=== PATIENT | female | born 2000 | race Hispanic/Latino ===

== ENCOUNTER 2019-11-13 23:23 | Emergency (ER) | payer MEDICAID, OTHER ==
[2019-11-13 23:48] LABS: #Basophils 0.1 thou/uL (0.0-0.2); #Eosinphils 0.1 thou/uL (0.0-0.7); #Lymphocytes 3.6 thou/uL (1.20-3.40); #Monocytes 0.7 thou/uL (0.11-0.59); #Neutrophils 9.8 thou/uL (1.40-6.50); %Basophils 0.6 % (0.0-1.0); %Lymphocytes 25.1 % (21.0-51.0); %Monocytes 5.1 % (0.0-10.0); %Neutrophils 68.2 % (42.0-75.0); Hemoglobin 14.9 g/dL (12.0-16.0); Mean Corpuscular Hemoglobin 33.4 pg (27.0-31.0); Mean Corpuscular Volume 95.4 fL (78.0-98.0); Mean Platelet Volume 7.1 fL (7.4-10.4); Platelet Count 297 thou/uL (130-400); RBC Distribution Width 11.1 % (11.5-14.5); Red Blood Cell (RBC) Count 4.45 mill/uL (4.20-5.40); White Blood Cell (WBC) Count 14.4 thou/uL (4.8-10.8)
[2019-11-14 00:03] LABS: Bilirubin Small (Negative); Blood, Urine Large (Negative); Glucose, Urine (Dipstick) Negative (Negative); Leukocyte Trace (Negative); Nitrite Negative (Negative); Protein, Urine (Dipstick) 100 mg/dL (Neg-Trace); Urobilinogen 0.2 mg/dL (Less than 2)
[2019-11-14 00:07] LABS: Anion Gap 11 mmol/L (10-20); BUN (Urea Nitrogen) 8 mg/dL (7.0-18.7); Calc. Creatinine Clearance 0 mL/min (70-130); Calcium 9.5 mg/dL (7.8-10.44); Carbon Dioxide 26 mmol/L (22-29); Chloride 106 mmol/L (98-107); Estimated GFR-MDRD Greater than 90; Glucose 101 mg/dL (70-105); Potassium 3.4 mmol/L (3.5-5.1); Sodium 140 mmol/L (136-145)
[2019-11-14 00:15] LABS: Bacteria/HPF None Seen HPF (None Seen); RBC/HPF Greater than 50 HPF (0-3); Squamous Epithelial None Seen HPF (0-3)
[2019-11-14 00:16] LABS: Clarity Hazy (Clear); Pregnancy Test - Urine (BHCG) POSITIVE (Negative); Pregu Control Background? CLEAR/WHITE (CLR/WHITE); Pregu Control Bar Appear? YES (CONTROL BAR); Specific Gravity 1.026 (1.002-1.036)
--- NOTE | 2019-11-14 07:07 | ULT ---
PRELIMINARY REPORT/[facility]/EMERGENCY AFTER HOURS PROCEDURE: EXAM: US Obstetrical, Complete <14 weeks CLINICAL HISTORY: PATIENT APPROXIMATELY 8 WEEKS BASED ON PRIOR IMAGING; DO NOT HAVE ACCESS TO PRIOR IMAGES/REP ORT. CURRENT VAGINAL BLEEDING FOR TWO DAYS. HAD PRIOR FULL TERM WITH NO ISSUES;VAGINAL DELI VERY. TECHNIQUE: Transvaginal and transabdominal imaging of the maternal pelvis and a <14 week gestation with image do cumentation. COMPARISON: None provided. FINDINGS: GESTATION: A CRL of 5.1 mm corresponds to 6 weeks 2 days however there is no evidence for heartbeat. UTERUS: Unremarkable. No myometrial mass. Measures 8.7 x 4.8 x 4.2 cm CERVIX: Closed. Unremarkable. OVARIES: Unremarkable. No mass. The RIGHT side measures 3.6 x 2.4 x 3.8 cm and the LEFT side measures 2.6 x 3 .5 x 4.6 cm FREE FLUID: No free fluid. IMPRESSION: Intrauterine gestation of 6 weeks 2 days. There is no evidence for heartbeat at this time and confirmation of the patient's dates is advised. Short-term follow-up ultrasound is advised in order to exclude demise ELECTRONICALLY SIGNED BY: Florin Rey MD Nov 14, 2019 12:47:19 AM CDT This report is intended for review by the ordering physician only, in accordance of law. If you recei ve this report in error, please call [facility] at [phone]. FINAL REPORT EMERGENCY AFTER HOURS PELVIC ULTRASOUND: FINDINGS/IMPRESSION: I agree with the findings and impression given in the preliminary report per [facility] physici an. There is a single intrauterine with estimated age of 6 weeks and 2 days. No heart rat e was able to be detected at this time. A follow-up exam is recommended to ensure viability.
== END 2019-11-14 00:52 | disposition home or self-care (01) ==
LOC: ERS 23:23
DX: O20.0 Threatened abortion (principal); Z3A.01 Less than 8 weeks gestation of pregnancy
CPT/HCPCS: 36415; 76856; 80048; 81003; 81015; 81025; 84702; 85025; 86900; 86901; 99284

== ENCOUNTER 2019-11-14 19:58 | Emergency (ER) | payer OTHER ==
[2019-11-14 21:28] LABS: #Eosinphils 0.1 thou/uL (0.0-0.7); #Lymphocytes 2.4 thou/uL (1.20-3.40); #Monocytes 0.7 thou/uL (0.11-0.59); #Neutrophils 8.4 thou/uL (1.40-6.50); %Basophils 0.3 % (0.0-1.0); %Eosinophils 0.9 % (0.0-10.0); %Lymphocytes 20.6 % (21.0-51.0); %Monocytes 5.9 % (0.0-10.0); %Neutrophils 72.3 % (42.0-75.0); Hemoglobin 14.9 g/dL (12.0-16.0); Mean Corpuscular HGB CONC 34.7 g/dL (32.0-36.0); Mean Corpuscular Hemoglobin 33.1 pg (27.0-31.0); Mean Corpuscular Volume 95.5 fL (78.0-98.0); Mean Platelet Volume 7.3 fL (7.4-10.4); Platelet Count 299 thou/uL (130-400); RBC Distribution Width 11.1 % (11.5-14.5); White Blood Cell (WBC) Count 11.6 thou/uL (4.8-10.8)
[2019-11-14 21:33] LABS: Bacteria/HPF None Seen HPF (None Seen); Bilirubin Negative (Negative); Blood, Urine 3+ (Negative); Clarity Extra Turbid (Clear); Glucose, Urine (Dipstick) Normal (Negative); Leukocyte 75 Leu/uL (Negative); Nitrite Negative (Negative); Protein, Urine (Dipstick) 30 mg/dL (Neg-Trace); RBC/HPF Greater than 50 HPF (0-3); Squamous Epithelial None Seen HPF (0-3); Urobilinogen Normal mg/dL (Less than 2)
--- NOTE | 2019-11-14 22:45 | ULT ---
PELVIC ULTRASOUND: 11/14/19 Endovaginal ultrasound of pelvis performed. INDICATIONS: Vaginal bleeding. Question retained products of gestation. COMPARISON: Comparison made to yesterday's pelvic ultrasound. Yesterday's ultrasound revealed a gestation of 6 weeks, 2 days. Patient states she has passed tissue from spontaneous AB. FINDINGS: There is no evidence of gestational sac. The endometrial stripe is upper normal measuring 8 to 9 mm. Both ovaries appear unremarkable with normal appearing follicles. No free fluid. Color Doppler shows blood flow to both ovaries. IMPRESSION: No evidence of intrauterine gestation. The endometrial stripe is upper normal. POS: AGW
== END 2019-11-14 23:10 | disposition home or self-care (01) ==
LOC: ERS 19:58
DX: O03.9 Complete or unspecified spontaneous abortion without complication (principal); Z79.899 Other long term (current) drug therapy
CPT/HCPCS: 76856; 81003; 84702; 85025

== ENCOUNTER 2020-02-23 14:19 | Emergency (ER) | payer OTHER ==
[2020-02-24 14:40] LABS: SARS-CoV-2 MS2 Positive; SARS-CoV-2 N Gene Positive; SARS-CoV-2 S Gene Positive; SARS-CoV-2 orf1ab Positive
== END 2020-02-23 16:01 | disposition home or self-care (01) ==
LOC: ERS 14:19
DX: U07.1 COVID-19 (principal)
CPT/HCPCS: 87635; 99283; U0003

== ENCOUNTER 2020-05-13 16:48 | Emergency (ER) | payer OTHER ==
--- NOTE | 2020-05-13 19:46 | ULT ---
Exam: Transabdominal and endovaginal pelvic ultrasound HISTORY:Left-sided pelvic pain. COMPARISON:11/13/2019, 05/04/2020 TECHNIQUE: Transabdominal and endovaginal imaging of the pelvis is performed. Ovaries are interrogate d with grayscale, color flow, Doppler imaging and spectral wave form analysis FINDINGS: Uterus: No myometrial masses. Uterus measurin.1 x 6.1 x 5.1 cm. Endometrium: Within the endometrium there is a possible gestational sac. No definite pole or yo lk sac. No subchorionic hemorrhage. The presumed gestational sac has a diameter of 0.39 cm corresponding to gestational age of 5 weeks 1 day. Tiny nabothian cysts in the cervix. Free fluid: There is free fluid Right ovary: Normal echotexture. Exophytic anechoic focus compatible with a 1.7 x 1.7 x 1.4 cm cyst Right ovary measurement: 2.0 x 2.2 x 3.4 cm Left ovary: Normal echotexture. Left ovary measurements: 2.0 x 2.6 x 3.4 cm Ovarian Doppler: There is vascular flow to the left and right ovary. Additionally, there are prominent vessels in the left adnexa. IMPRESSION: 1. Slightly irregular anechoic focus in the endometrium which may represent a early gestational sac. There is no evidence of a yolk sac or pole. Correlate with serum beta HCG. Follow-up ultrasounds are recommended. 2. Free fluid in the left adnexa along with prominent vessels. Correlate for venous congestion. 3. Right ovarian cyst. Transcribed Date/Time: 05/13/2020 8:09 PM
[2020-05-13] MEDS ORDERED: Acetaminophen 500 MG TAB ONE (20:30)
[2020-05-16 22:12] LABS: Chlamydia by PCR DETECTED (NotDetected); GC by PCR Not Detected (NotDetected)
== END 2020-05-13 20:56 | disposition home or self-care (01) ==
LOC: ERS 16:48
DX: O99.891 Other specified diseases and conditions complicating pregnancy (principal); R10.30 Lower abdominal pain, unspecified
CPT/HCPCS: 36415; 76856; 84702; 86900; 86901; 87491; 87591

== ENCOUNTER 2020-05-18 09:16 | Emergency (ER) | payer OTHER ==
[2020-05-18] MEDS ORDERED: Ondansetron ODT 4 MG TAB ONE (10:43)
[2020-05-18] MEDS ORDERED: Azithromycin 250 MG TAB ONE (10:45)
== END 2020-05-18 12:20 | disposition home or self-care (01) ==
LOC: ERS 09:16
DX: O98.819 Other maternal infectious and parasitic diseases complicating pregnancy, unspecified trimester (principal); O21.9 Vomiting of pregnancy, unspecified; Z87.891 Personal history of nicotine dependence
CPT/HCPCS: 99284; Q0162